=== PATIENT | male | born 1965 | race Caucasian/White ===

== ENCOUNTER → 2024-06-09 06:26 | Day surgery (SDC) | payer BC, SELFPAY | LOC: GI 06:26 | PROVIDERS: ATTENDING PHYSICIAN Internal Medicine Gastroenterology | DX: Z12.11 Encounter for screening for malignant neoplasm of colon (principal); K63.89 Other specified diseases of intestine; K63.5 Polyp of colon; K62.1 Rectal polyp | CPT/HCPCS: 45385; 45380; 88305 ==

== ENCOUNTER → 2025-03-30 10:32 | Outpatient (REF) | payer BC, SELFPAY | LOC: RAD 10:32 | PROVIDERS: ATTENDING PHYSICIAN Physician Assistant; FAMILY PHYSICIAN Student in an Organized Health Care Education/Training Program | DX: R10.13 Epigastric pain (principal) | CPT/HCPCS: 74246 ==

== ENCOUNTER 2025-07-01 06:56 | Emergency (ER) | payer BC, SELFPAY ==
[2025-07-01 06:59] VITALS: BP 157/91
--- NOTE | 2025-07-01 07:36 | ED.GENMED ---
History of Present Illness
General
Chief Complaint: Breathing Problem
Time Seen by Provider: 07/01/25 07:30
History of Present Illness
History of Present Illness:
60-year-old male presents to the emergency department for evaluation of 'reflux/belching' that began upon awakening this morning, he is concerned that he may have repeat COVID-19 after being sick with this 3 weeks ago. He denies any chest pain or
dyspnea at this point. Notes that when he was initially seen by his primary physician for COVID he 'had a little bit of a wheeze'. The symptoms have resolved. He has no history of coronary disease and denies tobacco use.
Past History
Past History
ED Past Medical History: None
Social History
Tobacco: Smoker
Alcohol: Occasional
Family History
Family History: Negative Diabetes
Review of Systems
Review of Systems
Allergies reviewed?: Yes
All Other Systems: ROS reviewed and negative except as documented in HPI and ROS
Phy Exam
Physical Exam
Physical Exam:
GEN: Well appearing, NAD, WDWN
HEENT: Oral mucosa moist, no scleral icterus
Cardiac: Regular rate and rhythm, no murmurs
Lung: No respiratory distress, no tachypnea, lungs clear to auscultation
MSK: No gross deformity or injuries
Skin: Good color, no pallor or jaundice, no rashes
Neuro: AO x3, moves all extremities freely
Psych: Calm, cooperative
Scores
Heart Failure Risk
Heart Failure Risk Score: Not Applicable
Course
Orders/Labs/Results
Orders:
Orders
07/01/25 07:36
Electrocardiogram (*1) Urgent
Reason for Study: Shortness of Breath
EKG- Treatment ONCE
CR Chest - 2 Views Urgent
Comment:
Reason For Exam: sob
Vital Signs
Initial and Last Documented VS:
Initial Vital Signs
Temp Pulse Resp BP Pulse Ox
98.6 F 80 15 157/91 99
07/01/25 06:59 07/01/25 06:59 07/01/25 06:59 07/01/25 06:59 07/01/25 06:59
Last Documented Vital Signs
Temp Pulse Resp BP Pulse Ox
98.6 F 80 15 157/91 99
07/01/25 06:59 07/01/25 06:59 07/01/25 06:59 07/01/25 06:59 07/01/25 07:36
MDM/Problems Addressed
MDM/Problems Addressed:
Chest x-ray and EKG unremarkable,, patient is asymptomatic on reevaluation, likely acute GERD that is resolved upon awakening. No concern for ACS or PE
Comment
Comment:
EKG independently interpreted by me shows normal sinus rhythm at a rate of [address] changes concerning for ischemia, comparable to EKG from April 2008
*Pulse Oximetry
SaO2: 99
Oxygen Mode of Delivery: Room air
Patient hypoxic: no
*Critical Care Note
Total Time (30-74mins, 75-104mins- exclusive of procedures): Not Applicable
ED Attending Note
-
Portions of this chart may have been created with voice recognition software.� Occasional wrong word or��sound alike� substitutions may have occurred due to the inherent limitations of voice recognition software.
Discharge Plan
Departure
Patient Disposition: Home (Routine Discharge)
Date of Disposition: 07/01/25
Time of Disposition: 08:08
Patient with high blood pressure during this ER visit?: No
Discharge Problem:
Heartburn
Instructions: Acid reflux and GERD in adults - ED (DC)
Prescriptions:
No Action
penicillin V potassium 500 MG tablet
500 mg PO Q6 Qty: 28 0RF
Referrals:
Lukasz Jose DO [Family Provider, Family Practice]
Interventions
Interventions:
*Risk Screen - Suicide Last Done: 07/01/25 06:59
*General Assessment Last Done: 07/01/25 08:14
*Neglect/Abuse Screening Last Done: 07/01/25 06:59
*ED- Fall Risk Assessment Last Done: 07/01/25 06:59
*ED COVID-19 Vaccine History Last Done: 07/01/25 06:59
*ED Influenza Vaccine History Last Done: 07/01/25 06:59
*Nursing Disposition Last Done: 07/01/25 08:14
ED- Cardiac Assessment Last Done: 07/01/25 08:13
ED- Pulmonary Assessment Last Done: 07/01/25 08:13
Discharge Date and Time
Discharge Date/Time: 07/01/25 08:14
Print Language: EMIRATI
== END 2025-07-01 08:14 | disposition home or self-care (01) ==
LOC: EMR 06:56
PROVIDERS: EMERGENCY PHYSICIAN Emergency Medicine; FAMILY PHYSICIAN Student in an Organized Health Care Education/Training Program
DX: R12 Heartburn (principal); F17.200 Nicotine dependence, unspecified, uncomplicated; Z86.16 Personal history of COVID-19
CPT/HCPCS: 99283; 71046; 93005

== ENCOUNTER → 2025-08-07 09:20 | Outpatient (REF) | payer BC, SELFPAY | LOC: HWRAD 09:20 | PROVIDERS: ATTENDING PHYSICIAN Internal Medicine Gastroenterology; FAMILY PHYSICIAN Student in an Organized Health Care Education/Training Program | DX: R14.2 Eructation (principal) | CPT/HCPCS: 76700 ==